=== PATIENT | male | born 1940 | race Caucasian/White ===

== ENCOUNTER 2021-05-16 06:29 | Outpatient (CLI) | payer MEDICARE, OTHER ==
[2021-05-21] MEDS ORDERED: AMOX-427 PO (11:57)
== END 2021-05-16 23:59 | disposition home or self-care (01) ==
LOC: LAB 06:29
PROVIDERS: ATTEND Surgery
DX: Z01.812 Encounter for preprocedural laboratory examination (principal); Z20.822 Contact with and (suspected) exposure to COVID-19

== ENCOUNTER 2021-05-18 08:56 | Inpatient (IN) | payer MEDICARE, OTHER ==
[~2021-05-18] VITALS: Ht 180.3 cm; Wt 88.0 kg
[2021-05-18] VITALS (11 sets, daily range): BP systolic 100–135; BP diastolic 55–74
[2021-05-18 09:35] LABS: HEMATOCRIT 43.1 % (36.7-47.1); MEAN CORPUSCULAR VOLUME 87.9 fL (73.0-96.2); PLATELET COUNT (AUTO) 153 K/uL (152-348)
[2021-05-18 09:42] LABS: CARBON DIOXIDE 26 mmol/L (21-32); CHLORIDE 103 mmol/L (98-107); CREATININE 1.4 mg/dL (0.6-1.3); GLUCOSE 120 mg/dL (74-106); POTASSIUM 4.3 mmol/L (3.5-5.1); UREA NITROGEN, BLOOD 22 mg/dL (7-18)
[2021-05-18 09:48] LABS: ALANINE AMINOTRANSFERASE 31 U/L (16-63); ALKALINE PHOSPHATASE 85 U/L (50-136); ASPARTATE AMINOTRANSFERASE 21 U/L (15-37); BILIRUBIN,TOTAL 0.6 mg/dL (0.2-1.0)
[2021-05-18] MEDS ORDERED: FENTANYL CITRATE 250 MCG/5 ML AMPUL ONE (10:20)
[2021-05-18] MEDS ORDERED: MIDAZOLAM HCL 2 MG/2 ML VIAL ONE ×3 (10:20→14:06)
[2021-05-18] MEDS ORDERED: ROCURONIUM BROMIDE 50 MG/5 ML VIAL ONE (10:21)
[2021-05-18] MEDS ORDERED: BUPIVACAINE PF 0.5% 30 ML VIAL ONE (10:55)
[2021-05-18] MEDS ORDERED: LIDOCAINE 1%-EPI 1:100,000 20 ML VIAL ONE (10:55)
[2021-05-18] MEDS ORDERED: ONDANSETRON 4 MG/2 ML VIAL IV ONE (12:11)
[2021-05-18] MEDS ORDERED: PROPOFOL 200 MG/20 ML BOTTLE IV ONE (12:11)
[2021-05-18] MEDS ORDERED: LIDOCAINE-MPF 2% 5 ML VIAL IJ ONE (12:11)
[2021-05-18] MEDS ORDERED: SEVOFLURANE 250 ML BOTTLE IH ONE (12:11)
[2021-05-18] MEDS ORDERED: METOCLOPRAMIDE HCL 10 MG/2 ML VIAL IV ONE (12:11)
[2021-05-18] MEDS ORDERED: EPHEDRINE SULFATE 50 MG/ML AMPUL IM ONE (12:11)
[2021-05-18] MEDS ORDERED: NEOSTIGMINE METHYLSULFATE 10 MG/10 ML VIAL IM ONE (12:11)
[2021-05-18] MEDS ORDERED: CEFAZOLIN 1 G VIAL IM ONE (12:11)
[2021-05-18] MEDS ORDERED: GLYCOPYRROLATE 0.2 MG/ML VIAL IJ ONE (12:11)
[2021-05-18] MEDS ORDERED: FENTANYL CITRATE 100 MCG/2 ML AMPUL ONE (12:23)
[2021-05-18] MEDS: CLOTRIMAZOLE/BETAMET DIPROP CREAM 15 GM TUBE TOP SCH ×2 (13:00→21:25)
[2021-05-18] MEDS ORDERED: PROPOFOL 100 ML IV PRN (13:30)
[2021-05-18] MEDS ORDERED: ONDANSETRON 4 MG/2 ML VIAL IV PRN ×2 (16:00→17:00)
[2021-05-18] MEDS ORDERED: HYDROMORPHONE 1 MG/1 ML DISP.SYRIN IV PRN (16:00)
[2021-05-18] MEDS ORDERED: MAGNESIUM HYDROXIDE 30 ML LIQUID UDC PO PRN (17:00)
[2021-05-18] MEDS ORDERED: Z GUARD REMEDY PASTE 57 GM TUBE TOP PRN (17:00)
[2021-05-18] MEDS ORDERED: ACETAMINOPHEN 325 MG TABLET PO PRN (17:00)
[2021-05-18] MEDS ORDERED: ZOLPIDEM 5 MG TABLET PO PRN (17:00)
[2021-05-18] MEDS: IV NS 1000 ML 1,000 ML IV PRN (17:46)
[2021-05-18] MEDS ORDERED: PROPOFOL 100 ML ONE ×2 (17:48→21:23)
[2021-05-18 18:07] LABS: ABG BASE EXCESS -0.9 mmol/L; ABG HCO3 23.1 mmol/L; ABG PCO2 36.4 mmHg (35.0-45.0); ABG PH 7.421 (7.350-7.450); ABG PO2 93.5 mmHg (75.0-100.0); ABG SITE RIGHT RADIAL; ABG TOTAL HEMOGLOBIN 13.8 G/dL (13.5-18.0); COHb 0.4 % (0.5-1.5); MetHb 0.3 % (0.0-1.5); O2Hb 96.7 % (94.0-97.0); VENT MODE VENT - A/C; VT, ABG 552 mL
--- NOTE | 2021-05-18 19:32 | NUR ---
Received pt orally intubated with 8.0 ETT~20cm at lip line, on Perez with the following settings of : AC-14, Vt-550, PEEP+5, FIO2-40%. No s/s of respiratory distress noted. Airway care done, pt responded to physical stimuli. ETT repositioned. Resus. bag at bedside. Vent and alarms checked and reset.
--- NOTE | 2021-05-18 20:00 | NUR ---
PATIENT IN BED SEDATED ON PROPOFOL DRIP AT 50 MCG/KG/MIN ,PATIENT GRIMACING TO PAIN AND WITHDRAWS TO PAIN . DOESN'T FOLLOW COMMANDS . ETT -8.0 -20 CM LIP -AC 14/550/40% PEEP 5.MINIMAL SECRETIONS THIN ORALLY AND VIA THE NARES. F/C WITH YELLOWISH URINE . CHECKED ABDOMEN WITH CDI POST OP INCISION . BILATERAL GROIN WITH RASH WITH LOTRIMIN CREAM . Addendum: 05/19/21 at 0601 by NEHA AVILEZ RN LOTRISONE CREAM INSTEAD OF LOTRIMIN CREAM .
[2021-05-18] MEDS: PROPOFOL 100 ML IV PRN (21:24)
--- NOTE | 2021-05-18 22:00 | NUR ---
TURNED AND REPOSITION PATIENT OFFLOADED BACK WITH PILLOW RIGHT AND LEFT LEG ELEVATED WITH PILLOWS . HOB UP .V/S WNL ,PATIENT TOLERATING VENT SETTINGS .
[2021-05-19] VITALS (19 sets, daily range): BP systolic 109–175; BP diastolic 42–103
[2021-05-19] MEDS ORDERED: PROPOFOL 100 ML ONE ×2 (01:23→04:44)
--- NOTE | 2021-05-19 01:36 | NUR ---
TURNED AND REPOSITION PATIENT OFFLOADED BACK WITH PILLOWS SCDS USED TO BILATERAL LOWER EXTREMITIES ,HEELS OFF BED . HOB UP .
[2021-05-19] MEDS: PROPOFOL 100 ML IV PRN ×2 (01:39→05:32)
--- NOTE | 2021-05-19 04:30 | NUR ---
AM CARE DONE ,BATH PATIENT ,CHANGED SOILED LINENS AND GOWN ,AJ CARE DONE .ORAL CARE DONE . TURNED AND REPOSITION PATIENT .
[2021-05-19 05:04] LABS: HEMATOCRIT 38.8 % (36.7-47.1); MEAN CORPUSCULAR HEMOGLOBIN 29.8 uug (23.8-33.4); MEAN CORPUSCULAR VOLUME 88.8 fL (73.0-96.2); PLATELET COUNT (AUTO) 136 K/uL (152-348)
[2021-05-19 05:19] LABS: CARBON DIOXIDE 28 mmol/L (21-32); CHLORIDE 104 mmol/L (98-107); CHOLESTEROL 143 mg/dL (<200); CREATININE 1.5 mg/dL (0.6-1.3); GLUCOSE 140 mg/dL (74-106); HDL CHOLESTEROL 36 mg/dL (40-60); PHOSPHOROUS 3.4 mg/dL (2.5-4.9); POTASSIUM 4.6 mmol/L (3.5-5.1); TRIGLYCERIDES 206 MG/DL (30-150); UREA NITROGEN, BLOOD 19 mg/dL (7-18)
--- NOTE | 2021-05-19 07:15 | NUR ---
Pt received on continuous mechanical ventilation via 8.0 ETT secured at 20cm lip line. Pt is on Perez vent with ordered settings of A/C 14,VT 550, PEEP +5, FIO2 40% Tolerating vent settings well. Pt placed on CPAP PEEP +5, PS 8 per MD orders. RN Ivelisse aware. Suctioned small amounts of thick yellowish secretions.Vent alarm parameters checked, on and audible. No signs or symptoms of respiratory distress noted. Vent plugged into red emergency outlet. Bag/valve/mask at bedside. Will continue to monitor.
[2021-05-19 09:24] LABS: ABG BASE EXCESS -2.7 mmol/L; ABG PCO2 29.6 mmHg (35.0-45.0); ABG PH 7.448 (7.350-7.450); ABG PO2 88.5 mmHg (75.0-100.0); ABG SITE RIGHT RADIAL; ABG TOTAL HEMOGLOBIN 14.9 G/dL (13.5-18.0); COHb 0.7 % (0.5-1.5); MetHb 0.4 % (0.0-1.5); VENT MODE VENT - CPAP
[2021-05-19] MEDS: CLOTRIMAZOLE/BETAMET DIPROP CREAM 15 GM TUBE TOP SCH ×2 (09:48→20:02)
[2021-05-19] MEDS ORDERED: DC PROPOFOL ONCE EXTUBATED XX PRN (11:30)
--- NOTE | 2021-05-19 11:40 | NUR ---
Pt extubated per MD order and placed on 6 Lpm Simple mask. RN Ivelisse aware. No signs or symptoms of respiratory distress noted. Will continue to monitor.
--- NOTE | 2021-05-19 12:34 | NUR ---
Contacted jennifer dodson for lactic acid and blood cultures as patient has a fever.
[2021-05-19] MEDS ORDERED: ACETAMINOPHEN 650 MG SUPP.RECT RC PRN (12:45)
[2021-05-19 13:03] LABS: *BILIRUBIN,URIN NEGATIVE (NEGATIVE); *BLOOD, URINE 3+ (NEGATIVE); *CLARITY,URINE CLEAR (CLEAR); *COLOR,URINE YELLOW (YELLOW); *KETONES,URINE NEGATIVE (NEGATIVE); *UROBILINOGEN,URINE 0.2 E.U./dl (NORMAL); LEUKOCYTE ESTERASE ,URINE NEGATIVE (NEGATIVE); NITRITE, URINE NEGATIVE (NEGATIVE); UGLUCOSE NEGATIVE (NEGATIVE)
--- NOTE | 2021-05-19 14:00 | NUR ---
Pt doing well. No respiratory distress noted. Placed on 4 Lpm Nasal cannula. SpO2 96%. Will continue to monitor.
[2021-05-19] MEDS ORDERED: FOLI1TAB27 PO (15:50)
[2021-05-19] MEDS ORDERED: LEVO125T8 PO (15:50)
[2021-05-19] MEDS ORDERED: ATEN25TA PO (15:50)
[2021-05-19] MEDS ORDERED: TAMS-3 PO (15:50)
[2021-05-19] MEDS ORDERED: TELM80TA9 PO (15:50)
[2021-05-19] MEDS ORDERED: FURO20TA4 PO (15:50)
[2021-05-19] MEDS ORDERED: MONT10TA33 PO (15:50)
[2021-05-19] MEDS ORDERED: ERGO500040 PO (15:50)
[2021-05-19] MEDS ORDERED: ATOR40TA PO (15:50)
[2021-05-19] MEDS ORDERED: AMLO2.5T4 PO (15:50)
[2021-05-19] MEDS ORDERED: CLOP75TA15 PO (15:50)
[2021-05-19] MEDS ORDERED: GABA-536 PO (15:50)
[2021-05-19 17:53] LABS: BACTERIA,URINE NONE SEEN /HPF (NONE SEEN); RBC,URINE 20-50 /HPF (0-3); SQUAMOUS EPITHELIAL CELL,UR FEW /HPF (NONE SEEN); URIC ACID CRYSTALS,URINE MANY /HPF (NONE SEEN); WBC,URINE 0-3 /HPF (0-3)
--- NOTE | 2021-05-19 18:10 | NUR ---
Report received from Ivelisse BERUMEN. patient is now extubated. patient was extubated this am and is now on 4L NC, patient is sinus rhythm with BBB and PVCs, his abdominal dressing is on right lower abdomen that is clean dry and intact, per RN no dressing change required when Dr. Feng came to see patient this morning. Patient is also with Logan catheter and ordered for RN to give Pyridium to patient before patient gets logan discontinued. will place a miscellaneous order for follow up on dosage and whether it is a one time dose or continuos. Patient is awake and alert able to communicate needs.
[2021-05-19] MEDS: BENZOCAINE/MENTH/CETYLPYRD LOZENGE MM PRN ×2 (19:52→22:04)
--- NOTE | 2021-05-19 20:00 | NUR ---
Received patient lying in bed. AAOx4. In no apparent distress. Denies any pain or SOB. O2 sat at 95% with O2 at 4LPM via NC in place. Patient able to expectorate phlegm. IV site on left wrist and left AC intact and patent. IVF infusing to left wrist IV site. NSr on tele with HR of 81/min. Abdominal dressing remains intact, dry and clean. Cardoza catheter draining via gravity. Needs assessed and attended to. Safety measure initiated and call al within reached.
[2021-05-19] MEDS: IV NS 1000 ML 1,000 ML IV PRN (23:43)
[2021-05-20] MEDS: BENZOCAINE/MENTH/CETYLPYRD LOZENGE MM PRN ×3 (00:10→12:15)
[2021-05-20 00:13] VITALS: BP 136/68
[2021-05-20 00:18] VITALS: BP 136/68
[2021-05-20 04:00] VITALS: BP 144/63
--- NOTE | 2021-05-20 05:56 | NUR ---
Slept well last night. AOx4. In no acute distress. Denies any SOB. O2 sat at 93% with O2 at 4LPM via NC in place. Complain of pain on surgical site and given Dilaudid 1mg x1 IV and effective. Cepacol lozenges given PO q2hrs PRN for sore throat. IV site on left wrist and left AC intact and patent. IVF continue to infuse to left wrist IV site. NSR on tele with HR of 80/min. Abdominal dressing clean and dry. Cardoza catheter draining via gravity with clear yellow urine output. Needs attended to and met. Safety measure maintained and call al within reached.
[2021-05-20 09:16] LABS: HEMATOCRIT 39.6 % (36.7-47.1); MEAN CORPUSCULAR HEMOGLOBIN 29.6 uug (23.8-33.4); MEAN CORPUSCULAR VOLUME 88.1 fL (73.0-96.2); PLATELET COUNT (AUTO) 132 K/uL (152-348)
[2021-05-20 09:31] LABS: CREATININE 1.2 mg/dL (0.6-1.3); PHOSPHOROUS 2.4 mg/dL (2.5-4.9)
[2021-05-20] MEDS: CLOTRIMAZOLE/BETAMET DIPROP CREAM 15 GM TUBE TOP SCH ×2 (09:35→20:27)
[2021-05-20] MEDS ORDERED: MONTELUKAST SODIUM 10 MG TABLET PO PRN (10:30)
[2021-05-20] MEDS: ATENOLOL 25 MG TABLET PO SCH (10:47)
[2021-05-20] MEDS: AMLODIPINE 2.5 MG TABLET PO SCH (10:47)
[2021-05-20] MEDS: VALSARTAN 160 MG TABLET PO SCH (10:48)
[2021-05-20] MEDS: FOLIC ACID 1 MG TABLET PO SCH (10:48)
[2021-05-20] MEDS: CLOPIDOGREL 75 MG TABLET PO SCH (10:48)
[2021-05-20] MEDS ORDERED: FUROSEMIDE 40 MG/4 ML VIAL IV ONE (11:00)
[2021-05-20] MEDS ORDERED: TAMSULOSIN HCL 0.4 MG CAP.SR.24H PO SCH (11:00)
[2021-05-20 12:11] VITALS: BP 155/74
[2021-05-20] MEDS: PIPERACILLIN SODIUM/TAZOBACTAM 3.375 G in IV DEXTROSE 5% 50 ML IV SCH ×2 (13:18→21:30)
[2021-05-20] MEDS ORDERED: NEUTRA PHOS PACKET PO ONE (15:45)
[2021-05-20 16:07] VITALS: BP 128/68
[2021-05-20 20:00] VITALS: BP 107/65
[2021-05-20] MEDS ORDERED: ATORVASTATIN 40 MG TABLET PO SCH (21:00)
[2021-05-20] MEDS ORDERED: GABAPENTIN 400 MG CAPSULE PO SCH (21:00)
[2021-05-21] MEDS: BENZOCAINE/MENTH/CETYLPYRD LOZENGE MM PRN (01:39)
[2021-05-21 04:00] VITALS: BP 129/74
[2021-05-21] MEDS: PIPERACILLIN SODIUM/TAZOBACTAM 3.375 G in IV DEXTROSE 5% 50 ML IV SCH (05:26)
[2021-05-21] MEDS ORDERED: LEVOTHYROXINE SODIUM 125 MCG TABLET PO SCH (07:00)
[2021-05-21 07:30] LABS: HEMATOCRIT 37.8 % (36.7-47.1); MEAN CORPUSCULAR HEMOGLOBIN 29.8 uug (23.8-33.4); MEAN CORPUSCULAR VOLUME 87.2 fL (73.0-96.2); PLATELET COUNT (AUTO) 156 K/uL (152-348)
[2021-05-21 07:41] LABS: CARBON DIOXIDE 29 mmol/L (21-32); CHLORIDE 102 mmol/L (98-107); CREATININE 1.6 mg/dL (0.6-1.3); GLUCOSE 130 mg/dL (74-106); PHOSPHOROUS 3.1 mg/dL (2.5-4.9); POTASSIUM 3.3 mmol/L (3.5-5.1); UREA NITROGEN, BLOOD 29 mg/dL (7-18)
[2021-05-21] MEDS: CLOPIDOGREL 75 MG TABLET PO SCH (08:28)
[2021-05-21] MEDS: VALSARTAN 160 MG TABLET PO SCH (08:29)
[2021-05-21] MEDS: FOLIC ACID 1 MG TABLET PO SCH (08:29)
[2021-05-21] MEDS: AMLODIPINE 2.5 MG TABLET PO SCH (08:30)
[2021-05-21] MEDS: ATENOLOL 25 MG TABLET PO SCH (08:30)
[2021-05-21] MEDS ORDERED: FUROSEMIDE 20 MG TABLET PO SCH (09:00)
[2021-05-21] MEDS: CLOTRIMAZOLE/BETAMET DIPROP CREAM 15 GM TUBE TOP SCH (09:00)
[2021-05-21] MEDS ORDERED: POTASSIUM CHLORIDE 10 MEQ TAB.PRT.SR PO ONE (09:45)
[2021-05-21] MEDS ORDERED: AMOX-427 PO (11:57)
[2021-05-21 12:00] VITALS: BP 102/51
--- NOTE | 2021-05-21 14:00 | NUR ---
Resident with orders for discharge to home. Reviewed all discharge information with patient. reminded patient to follow up with primary healthcare provider within 1 week, follow up with dr. page within 1 week, follow up with primary healthcare provider for vaccinations if needed. reminded patient to follow all medication regimen and to return to nearest er or call 911 if symptoms worse. patient states understanding. inventory of belonging completed all belongings present. all paperwork signed. Son and daughter will roller picker patient by 230 per .
--- NOTE | 2021-05-21 14:20 | NUR ---
Son and DTR in unit picking up patient, patient wheeled downstairs, helped onto car safely.
[2021-05-21] MEDS ORDERED: TAMSULOSIN HCL 0.4 MG CAP.SR.24H PO SCH (21:00)
[2021-05-21] MEDS ORDERED: PIPERACILLIN SODIUM/TAZOBACTAM 3.375 G in IV DEXTROSE 5% 100 ML IV SCH (22:00)
[2021-05-22] MEDS ORDERED: ERGOCALCIFEROL 50,000 UNIT CAPSULE PO SCH (09:00)
== END 2021-05-21 14:25 | disposition home or self-care (01) | DRG 350 ==
LOC: DS 08:56 → CCUOV 16:15 → TRANSITION 18:02 → TELE-TD3 05-19 18:06 → MEDSURG3 05-20 09:01
PROVIDERS: ADMIT Nurse Practitioner Acute Care; ATTEND Nurse Practitioner Acute Care
PROC: 0YU50JZ Supplement Right Inguinal Region with Synthetic Substitute, Open Approach (ICD-10-PCS; principal; 2021-05-18)
PROC: 5A1935Z Respiratory Ventilation, Less than 24 Consecutive Hours (ICD-10-PCS; 2021-05-18)
PROC: 0BH18EZ Insertion of Endotracheal Airway into Trachea, Via Natural or Artificial Opening Endoscopic (ICD-10-PCS; 2021-05-18)
DX: K40.30 Unilateral inguinal hernia, with obstruction, without gangrene, not specified as recurrent (principal); J96.01 Acute respiratory failure with hypoxia; N17.0 Acute kidney failure with tubular necrosis; J69.0 Pneumonitis due to inhalation of food and vomit; E03.9 Hypothyroidism, unspecified; E78.5 Hyperlipidemia, unspecified; I25.10 Atherosclerotic heart disease of native coronary artery without angina pectoris; Z95.2 Presence of prosthetic heart valve; I10 Essential (primary) hypertension; E66.9 Obesity, unspecified; Z68.27 Body mass index [BMI] 27.0-27.9, adult; N18.9 Chronic kidney disease, unspecified; I12.9 Hypertensive chronic kidney disease with stage 1 through stage 4 chronic kidney disease, or unspecified chronic kidney disease; Z20.822 Contact with and (suspected) exposure to COVID-19
CPT/HCPCS: 36415; 36600; 71045; 83605; 83735; 84100; 85025; 85730; 87040; 87070; 87086; 94002; 94003; 94640; 97161; A4649; A4663; C1781; G0378; J0690; J1170; J1940; J2250; J2405; J2543; J2765; J3010; J3490; J7030; J7060; J7120